=== PATIENT | female | born 2000 | race Caucasian/White ===

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

== ENCOUNTER → 2021-11-18 | Outpatient (CLI) | payer BC ==
--- NOTE | 2021-11-18 15:51 | XR ---
EXAMINATION TYPE: XR ribs bilat w pa chest xray DATE OF EXAM: 11/18/2021 COMPARISON: None HISTORY: R07.81 TECHNIQUE: Chest is examined in the frontal projection. 2 views bilateral ribs were obtained each. FINDINGS: Heart size normal. Pulmonary vasculature is normal. The lungs are clear. No pneumothorax is evident. Right ribs are intact. No acute or subacute fractures are evident. IMPRESSION: 1. No acute pulmonary process. 2. No acute displaced rib fractures identified.
== END | disposition home or self-care (01) ==
LOC: RADXRMAIN 14:52
PROVIDERS: ATTEND Physician Assistant
DX: R07.81 Pleurodynia (principal)
CPT/HCPCS: 71111

== ENCOUNTER → 2022-02-15 | Outpatient (CLI) | payer BC, OTHER ==
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
== END | disposition home or self-care (01) ==
LOC: RADMRIMAIN 10:50
PROVIDERS: ATTEND Orthopaedic Surgery
DX: M25.562 Pain in left knee (principal)

== ENCOUNTER 2022-05-17 12:38 | Emergency (ER) | payer BC, OTHER ==
[2022-05-17 12:44] VITALS: RESP 18
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
[2022-05-17 16:00] VITALS: BP 114/78; PULSE 78; TEMP 97.8
== END 2022-05-17 15:58 | disposition home or self-care (01) ==
LOC: EC 12:38
DX: R07.89 Other chest pain (principal); F41.9 Anxiety disorder, unspecified
CPT/HCPCS: 71046; 93005; 99285

== ENCOUNTER → 2022-06-07 | Outpatient (CLI) | payer BC | END | disposition home or self-care (01) | LOC: RADECHMAIN 07:26 | PROVIDERS: ATTEND Pediatrics | DX: R07.9 Chest pain, unspecified (principal) | CPT/HCPCS: 93270 ==